=== PATIENT | male | born 1975 | race Caucasian/White ===

== ENCOUNTER 2018-07-19 16:39 | Emergency (ER) | payer MEDICAID ==
[~2018-07-19] VITALS: Ht 180.3 cm; Wt 81.8 kg
[~2018-07-19 16:39] MED LIST: GUAI600T PO; LEVA15HF4 IH; PSEU-225 PO
[2018-07-19 17:31] VITALS: BP 132/84
[2018-07-19] MEDS ORDERED: CLIN150C2 PO (19:05)
== END 2018-07-19 19:18 | disposition home or self-care (01) ==
LOC: ER 16:40
DX: K05.30 Chronic periodontitis, unspecified (principal); F12.90 Cannabis use, unspecified, uncomplicated; Z88.0 Allergy status to penicillin; Z79.899 Other long term (current) drug therapy
CPT/HCPCS: 64400; 99284